=== PATIENT | female | born 1990 | race Caucasian/White ===

== ENCOUNTER → 2021-08-30 | Outpatient (CLI) | payer OTHER ==
[2021-08-30 15:28] LABS: RED BLOOD COUNT 4.31 M/UL (4.00-5.10); WHITE BLOOD COUNT 7.5 K/UL (4.5-11.0)
[2021-08-30 16:13] LABS: BUN/CREATININE RATIO 24 (0-10)
[2021-08-31 07:10] LABS: HBSAG SCREEN Negative (Negative); HEP A AB, IGM Negative (Negative); HEP B CORE AB, IGM Negative (Negative); HEP C VIRUS AB >11.0 (0.0-0.9); RPR Non Reactive (Non Reactive); VITAMIN D, 25-HYDROXY 23.8 ng/mL (30.0-100.0)
[2021-08-31 08:14] LABS: HIV SCREEN 4TH GENERATION WRFX Non Reactive (Non Reactive); THYROXINE (T4) 6.5 ug/dL (4.5-12.0); TRIIODOTHYRONINE (T3) 101 ng/dL (71-180)
== END ==
LOC: LAB 13:36
PROVIDERS: Registered Nurse
DX: Z13.228 Encounter for screening for other metabolic disorders (principal); Z11.59 Encounter for screening for other viral diseases; D51.9 Vitamin B12 deficiency anemia, unspecified; E55.9 Vitamin D deficiency, unspecified; E78.00 Pure hypercholesterolemia, unspecified
CPT/HCPCS: 80053; 80061; 80074; 82607; 84436; 84443; 84480; 85025; 86592; 86803; 87389

== ENCOUNTER 2021-09-02 18:16 | Emergency (ER) | payer OTHER | END 2021-09-02 19:05 | disposition left against medical advice (07) | LOC: ER1 18:16 | DX: R10.9 Unspecified abdominal pain (principal); R10.813 Right lower quadrant abdominal tenderness; F17.200 Nicotine dependence, unspecified, uncomplicated; R10.814 Left lower quadrant abdominal tenderness; Z87.442 Personal history of urinary calculi; Z88.1 Allergy status to other antibiotic agents | CPT/HCPCS: 81001; 84703; 99284 ==

== ENCOUNTER → 2021-11-01 | Outpatient (CLI) | payer OTHER ==
[2021-11-01 17:47] LABS: HEMOGLOBIN 12.7 gm/dl (12.3-15.3); RED BLOOD COUNT 4.56 M/UL (4.00-5.10); WHITE BLOOD COUNT 5.6 K/UL (4.5-11.0)
[2021-11-01 18:02] LABS: BUN/CREATININE RATIO 13 (0-10)
[2021-11-03 08:14] LABS: MAGNESIUM 2.2 mg/dL (1.6-2.3); RPR Non Reactive (Non Reactive); THYROXINE (T4) 8.5 ug/dL (4.5-12.0); TRIIODOTHYRONINE (T3) 129 ng/dL (71-180); VITAMIN D, 25-HYDROXY 21.1 ng/mL (30.0-100.0)
[2021-11-03 13:15] LABS: HBSAG SCREEN Negative (Negative); HEP A AB, IGM Negative (Negative); HEP B CORE AB, IGM Negative (Negative); HEP C VIRUS AB >11.0 (0.0-0.9); HIV AB/P24 AG SCREEN Non Reactive (Non Reactive)
[2021-11-04 11:12] LABS: QUANTIFERON MITOGEN VALUE >10.00 IU/mL (.); QUANTIFERON NIL VALUE 0.12 IU/mL (.); QUANTIFERON TB1 AG VALUE 0.33 IU/mL (.); QUANTIFERON TB2 AG VALUE 0.47 IU/mL (.); QUANTIFERON-TB GOLD PLUS Positive (Negative)
== END ==
LOC: LAB 16:03
PROVIDERS: Registered Nurse
DX: Z13.228 Encounter for screening for other metabolic disorders (principal); Z11.4 Encounter for screening for human immunodeficiency virus [HIV]; Z11.59 Encounter for screening for other viral diseases; R94.6 Abnormal results of thyroid function studies; E55.9 Vitamin D deficiency, unspecified; E78.00 Pure hypercholesterolemia, unspecified; D51.9 Vitamin B12 deficiency anemia, unspecified
CPT/HCPCS: 36415; 80053; 80061; 80074; 82607; 82728; 83036; 83540; 83735; 84436; 84443; 84480; 85025; 86592; 86708; 86803; 87389

== ENCOUNTER → 2021-11-15 | Outpatient (CLI) | payer OTHER | LOC: RAD 15:53 | DX: Z11.1 Encounter for screening for respiratory tuberculosis (principal) | CPT/HCPCS: 71046 ==